=== PATIENT | female | born 1955 | race Caucasian/White ===

== ENCOUNTER → 2020-09-20 | Outpatient (CLI) | payer MEDICARE ==
[~2020-09-20] MED LIST: PROAIR DIGIHAL90 MCG INH
== END ==
LOC: MAMO 10:47
DX: Z12.31 Encounter for screening mammogram for malignant neoplasm of breast (principal); Z78.0 Asymptomatic menopausal state
CPT/HCPCS: 77063; 77067

== ENCOUNTER → 2020-10-10 | Outpatient (CLI) | payer MEDICARE | LOC: CT 09-27 13:30 | DX: R91.8 Other nonspecific abnormal finding of lung field (principal) | CPT/HCPCS: 36415; 71260; 82565; Q9963 ==

== ENCOUNTER 2020-10-20 21:24 | Emergency (ER) | payer MEDICARE ==
[~2020-10-20] VITALS: Ht 165.1 cm; Wt 87.5 kg
[2020-10-21 00:29] LABS: HEMOGLOBIN 16.1 gm/dl (12.3-15.3); RED BLOOD COUNT 5.24 M/UL (4.00-5.10); WHITE BLOOD COUNT 7.9 K/UL (4.5-11.0)
[2020-10-21 00:52] LABS: BUN/CREATININE RATIO 15 (0-10)
[2020-10-21] MEDS ORDERED: PROAIR DIGIHAL90 MCG INH (04:18)
== END 2020-10-21 05:33 | disposition home or self-care (01) ==
LOC: ER1 21:24
PROVIDERS: Emergency Medicine
DX: U07.1 COVID-19 (principal); I10 Essential (primary) hypertension
CPT/HCPCS: 71045; 80053; 81001; 82728; 84484; 85025; 93005; 96374; 99284; J2405; M0239; U0002

== ENCOUNTER → 2021-10-31 | Outpatient (CLI) | payer MEDICARE | LOC: CT 10-20 08:00 | DX: R07.9 Chest pain, unspecified (principal); R06.02 Shortness of breath; R91.8 Other nonspecific abnormal finding of lung field | CPT/HCPCS: 36415; 71260; 82565; Q9967 ==

== ENCOUNTER → 2022-03-09 | Outpatient (CLI) | payer MEDICARE | LOC: MAMO 13:42 | DX: Z12.31 Encounter for screening mammogram for malignant neoplasm of breast (principal) | CPT/HCPCS: 77063; 77067 ==